=== PATIENT | male | born 1975 ===

== ENCOUNTER 2019-07-11 09:18 | Inpatient (IN) | payer OTHER ==
[~2019-07-11] VITALS: Ht 175.3 cm; Wt 92.1 kg
[2019-07-16] MEDS ORDERED: AMOX1TAB5 PO (10:51)
[2019-07-16] MEDS ORDERED: TRAMADOL HCL50 MG PO (10:51)
[2019-07-16] MEDS ORDERED: INTESTINEX680 M1 PO (10:52)
[2019-07-16] MEDS ORDERED: QUESTRAN PACKET4 GM PO (10:52)
== END 2019-07-16 12:05 | disposition home or self-care (01) | DRG 331 ==
LOC: ER 09:18 → SEC-K 11:48 → SURH 11:48
PROVIDERS: ADMIT Surgery
PROC: BW21YZZ Computerized Tomography (CT Scan) of Abdomen and Pelvis using Other Contrast (ICD-10-PCS; 2019-07-11)
PROC: BW21Y0Z Computerized Tomography (CT Scan) of Abdomen and Pelvis using Other Contrast, Unenhanced and Enhanced (ICD-10-PCS; 2019-07-11)
PROC: 0DBK8ZX Excision of Ascending Colon, Via Natural or Artificial Opening Endoscopic, Diagnostic (ICD-10-PCS; 2019-07-12)
PROC: 0DBH8ZX Excision of Cecum, Via Natural or Artificial Opening Endoscopic, Diagnostic (ICD-10-PCS; 2019-07-12)
PROC: 3E0H7GC Introduction of Other Therapeutic Substance into Lower GI, Via Natural or Artificial Opening (ICD-10-PCS; 2019-07-12)
PROC: 07TB4ZZ Resection of Mesenteric Lymphatic, Percutaneous Endoscopic Approach (ICD-10-PCS; 2019-07-13)
PROC: 0DTF4ZZ Resection of Right Large Intestine, Percutaneous Endoscopic Approach (ICD-10-PCS; principal; 2019-07-13 07:00)
PROC: BB24Y0Z Computerized Tomography (CT Scan) of Bilateral Lungs using Other Contrast, Unenhanced and Enhanced (ICD-10-PCS; 2019-07-14)
DX: C18.2 Malignant neoplasm of ascending colon (principal); D12.0 Benign neoplasm of cecum; D12.2 Benign neoplasm of ascending colon